=== PATIENT | female | born 1980 | race Caucasian/White ===

== ENCOUNTER → 2016-09-17 | Outpatient (CLI) | payer OTHER | LOC: KOH-I 08:34 | DX: L40.0 Psoriasis vulgaris (principal); Z79.899 Other long term (current) drug therapy | CPT/HCPCS: 71020 ==

== ENCOUNTER → 2020-12-19 | Outpatient (CLI) | payer OTHER ==
[~2020-12-19] MED LIST: KEFLEX CAP 500500 MG PO
== END ==
LOC: KOH-I 10:24
DX: R10.9 Unspecified abdominal pain (principal)
CPT/HCPCS: 74176